=== PATIENT | female | born 2000 ===

== ENCOUNTER 2018-07-04 01:09 | Emergency (ER) | payer MEDICAID ==
[2018-07-04 01:31] VITALS: BMI 24.0
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
[2018-07-04 02:25] VITALS: BP 120/80; PULSE 93; RESP 19; TEMP 98; O2SAT 98
== END 2018-07-04 02:11 | disposition home or self-care (01) ==
LOC: H.ER 01:09
DX: Z04.1 Encounter for examination and observation following transport accident (principal)